=== PATIENT | female | born 1960 | race Caucasian/White ===

== ENCOUNTER 2016-04-16 09:35 | Inpatient (IN) | payer OTHER ==
[~2016-04-16] VITALS: Ht 167.6 cm; Wt 92.8 kg
[2016-04-16] VITALS (33 sets, daily range): BP systolic 103–162; BP diastolic 49–84; PULSE 63–96; RESP 10–26; Ht 167.6 cm; Wt 92.8 kg
[2016-04-16] MEDS: BUPIVACAINE 0.5% (SDV) 30 ML, morphine SULFATE (PF) 8 MG, EPINEPHrine 0.3 MG, KETOROLAC... IRR SCH ×14 (06:30→15:23)
[~2016-04-16 09:35] MED LIST: CEFAZOLIN 2 GM/50 ML (PMX) 50 ML IVPB ONE; DEXAMETHASONE 1 MG TAB PO ONE; GABAPENTIN 300 MG CAP PO ONE; SOD CHLORIDE 0.9% 100 ML, TRANEXAMIC ACID 3,000 MG IRR ONE; SUCCINYLCHOLINE CHLORIDE 100 MG/5 ML SYG IV ONE; TRANEXAMIC ACID 1,000 MG in SOD CHLORIDE 0.9% 100 ML IVPB ONE; oxyCODONE (CR) 10 MG TAB [oxyCONTIN] PO ONE; traMADol 50 MG TAB PO ONE
[2016-04-16] MEDS ORDERED: OMEP20CA16 PO (11:02)
--- NOTE | 2016-04-16 11:15 | HPN ---
Date/Time of Note Date/Time of Note DATE: 04/16/16 TIME: 11:15 Interval H&P Admission Note Pt. seen H&P reviewed: No system changes CHIP MAGDALENO MD Apr 16, 2016 11:15
[2016-04-16] MEDS ORDERED: CEFAZOLIN 1 GM INJ ONE (12:53)
[2016-04-16] MEDS ORDERED: ETOMIDATE 20 MG INJ ONE (12:53)
[2016-04-16] MEDS ORDERED: ONDANSETRON 4 MG INJ ONE (12:53)
[2016-04-16] MEDS ORDERED: PROPOFOL 100 ML ONE (12:53)
[2016-04-16] MEDS ORDERED: LIDOCAINE 100 MG SYRINGE ONE (12:53)
[2016-04-16] MEDS ORDERED: NEOSTIGMINE 3 MG/3 ML SYRINGE ONE (12:53)
[2016-04-16] MEDS ORDERED: GLYCOPYRROLATE 0.4 MG INJ ONE (12:53)
[2016-04-16] MEDS ORDERED: MIDAZOLAM 1 MG/ML 2 ML INJ ONE (12:53)
[2016-04-16] MEDS ORDERED: ROCURONIUM 50 MG INJ ONE (12:53)
[2016-04-16] MEDS ORDERED: morphine SULFATE/PF (10 MG/10 ML) INJ ONE (12:53)
[2016-04-16] MEDS ORDERED: FENTAnyl 50 MCG/ML VIAL ONE (12:53)
[2016-04-16] MEDS ORDERED: DEXAMETHASONE 4 MG/ML 1 ML INJ ONE (12:54)
[2016-04-16] MEDS ORDERED: THROMBIN 5000 UNIT VIAL ONE (14:21)
[2016-04-16] MEDS ORDERED: POLYMYXIN/BACITRACIN 1L IRRIG ONE (14:21)
[2016-04-16] MEDS ORDERED: CA CHLORIDE 10% 10 ML SYRINGE ONE (14:48)
[2016-04-16] MEDS ORDERED: DIPHENHYDRAMINE 50 MG INJ IV PRN ×3 (16:00→21:00)
[2016-04-16] MEDS ORDERED: EPHEDrine SULFATE 50 MG/5 ML SYG IV PRN (16:00)
[2016-04-16] MEDS ORDERED: HYDROmorphONE (0.2 MG/ML) 10ML SYG IV PRN ×3 (16:00)
[2016-04-16] MEDS ORDERED: KETOROLAC 30 MG INJ IV PRN (16:00)
[2016-04-16] MEDS ORDERED: LABETALOL HCL 20MG INJ IV PRN (16:00)
[2016-04-16] MEDS ORDERED: ONDANSETRON 4 MG INJ IV PRN ×3 (16:00→21:00)
[2016-04-16] MEDS ORDERED: ZOLPIDEM 5 MG TAB PO PRN ×2 (16:00→17:00)
[2016-04-16] MEDS ORDERED: TRIMETHOBENZAMIDE 100 MG/ML VIAL IM PRN (16:00)
[2016-04-16] MEDS ORDERED: hydrALAzine 20 MG INJ IV PRN (16:00)
[2016-04-16] MEDS ORDERED: NALOXONE (0.4 MG/ML) INJ IV PRN (16:00)
[2016-04-16] MEDS ORDERED: FENTAnyl 50 MCG/ML VIAL IV PRN ×3 (16:00)
[2016-04-16] MEDS ORDERED: MIDAZOLAM 1 MG/ML 2 ML INJ IV PRN (16:00)
[2016-04-16] MEDS ORDERED: MEPERIDINE 25 MG INJ IV PRN (16:00)
--- NOTE | 2016-04-16 16:54 | OPR ---
DATE OF OPERATION: 04/16/2016 SURGEON: Chip Shah MD WOODEN FRAME BUILDER: Billy Dunn MD PREOPERATIVE DIAGNOSES: 1. Left hip osteoarthritis, postop. 2. Status post left hip arthroscopic surgery, now with secondary osteoarthritis. OPERATION PERFORMED: Revision of prior left hip arthroscopic surgery to total hip replacement. Headlight Assembler surgeon Billy Dunn MD, was asked to be present at my request as a result of the significan t surgical complexity associated with this procedure, including positioning of the extremity, manipu lation and protection of the neurovascular structures. In my opinion, the assistance offered by a [facility] music sound light technician is insufficient and Dr. Dunn should be compensated for his time. PROCEDURE IN DETAIL: Following administration of general endotracheal anesthesia, the patient was p laced in the supine position, left lower extremity was prepped and draped in the usual sterile fashi on. A lateral incision was then made over the tensor. The tensor was retracted laterally. The ant erior capsule was then entered after significant scar tissue was resected from the prior arthroscopi c procedure. A capsulotomy was then performed and the subsequent capsulectomy to expose the joints. A femoral neck cut was then made in the appropriate degree of version and inclination followed by dislocation of the head. Examination of the acetabulum revealed severe arthritic changes as did the femoral head. The peripheral osteophytes and capsulectomy were then completed. The acetabulum was reamed up to the 50 mm size. A 50 mm [place] and cup was then inserted with a 30 mm fixation scre w. Solid fixation was obtained. A standard liner was then applied. The femur was then exposed and reamed up to the 10 mm size. Subsequent radiographic and computer CT -guided imagery revealed essentially normal and collinear alignment of the extremities with antevers ion and abduction of the cup to be within the normal parameters. The actual [place] stem was then in serted with a standard +5 head which was a ceramic head. The joint was taken through a full range o f motion, very stable components, no instability. Thorough irrigation was then completed. The join t was subsequently taken through a full range of motion again with no evident instability and closed in layers with a Prineo dressing as the final dressing. The patient was then awakened, transported to recovery in stable condition, having tolerated the procedure well. Estimated blood loss for thi s procedure was 250 mL. Postoperative x-rays will be obtained in the recovery room as well as a CBC . Dictated By: CHIP MENDOZA/NOAH Conf#: [id number] DID#: [id number]
[2016-04-16] MEDS ORDERED: OXYCODONE/ACETAMINOPHEN (5/325) TAB PO PRN ×2 (17:00)
[2016-04-16] MEDS ORDERED: MAGNESIUM HYDROXIDE 30ML CUP PO PRN (17:00)
[2016-04-16] MEDS ORDERED: BETHANECHOL 25 MG TAB PO PRN (17:00)
[2016-04-16] MEDS ORDERED: ACETAMINOPHEN 500 MG TAB PO PRN (17:00)
[2016-04-16] MEDS ORDERED: KETOROLAC 15 MG INJ IV PRN (17:00)
[2016-04-16] MEDS ORDERED: TRANEXAMIC ACID 1,000 MG in SOD CHLORIDE 0.9% 100 ML IV ONE (17:00)
[2016-04-16] MEDS ORDERED: morphine 2 MG INJ IV PRN (17:00)
--- NOTE | 2016-04-16 17:32 | RADRPT ---
PROCEDURE: XR Pelvis. CLINICAL INDICATION: Left hip pain with history of hip replacement. Postoperative evaluation. TECHNIQUE: Single AP view of the pelvis was obtained. COMPARISON: None FINDINGS: A left hip arthroplasty is seen and is without evidence of hardware loosening of lucency. No acute fracture or dislocation is seen. Degenerative changes of the right hip are seen. A Peters catheter is identified. The soft tissue structures are intact. IMPRESSION: Radiographically intact left hip arthoplasty. RPTAT: HPNM Physician Hetal Date Time Electronically viewed and signed by Physician Hetal on 04/16/2016 17:31 /
[2016-04-16 17:42] LABS: ADD SCAN DIFF NO
[2016-04-16] MEDS: LACTATED RINGER'S 1,000 ML IV SCH (17:44)
[2016-04-16] MEDS: DEXAMETHASONE 2 MG TAB PO SCH (17:44)
[2016-04-16 17:53] LABS: BASOPHIL # 0.1 10^3/ul (0.0-0.1); BASOPHILS % 0.4 % (0.0-2.0); EOSINOPHILS % 0.1 % (0.0-7.0); HEMATOCRIT 39.7 % (37.0-47.0); HEMOGLOBIN 12.6 g/dl (12.0-16.0); LYMPHOCYTES # 1.4 10^3/ul (0.8-2.9); LYMPHOCYTES % 9.9 % (15.0-51.0); MEAN CORPUSCULAR HEMOGLOBIN 28.8 pg (29.0-33.0); MEAN CORPUSCULAR HGB CONC 31.7 g/dl (32.0-37.0); MEAN CORPUSCULAR VOLUME 90.8 fl (82.0-101.0); MEAN PLATELET VOLUME 10.5 fl (7.4-10.4); MONOCYTE # 0.1 10^3/ul (0.3-0.9); MONOCYTES % 0.7 % (0.0-11.0); NEUTROPHIL # 12.1 10^3/ul (1.6-7.5); PLATELET COUNT 221 10^3/UL (140-415); RED BLOOD COUNT 4.37 10^6/ul (4.20-5.40); RED CELL DISTRIBUTION WIDTH 13.1 % (11.5-14.5); WHITE BLOOD COUNT 13.8 10^3/ul (4.8-10.8)
--- NOTE | 2016-04-16 19:27 | CONS ---
Date/Time of Note Date/Time of Note DATE: 04/16/16 TIME: 19:18 Assessment/Plan Assessment/Plan Problems: (1) Gastro-esophageal reflux disease without esophagitis Status: Chronic Comment: Cont. PPI bid (2) Obstructive sleep apnea Status: Chronic Comment: CPAP while sleeping at night (3) Aftercare following left hip joint replacement surgery Status: Acute Comment: Doing well POD#0. Will defer to primary team for pain control and PT orders. Will monitor for any medical issues should they arise. Consultation Date/Type/Reason Admit Date/Time Apr 16, 2016 at 09:56 Date of Consultation: Apr 16, 2016 Type of Consultation: Medicine Reason for Consultation Medical Management Referring Provider: CHIP MAGDALENO MD Hx of Present Illness 56 y/o H F w/ h/o GERD and L hip problems who had labrum repaired 2 years ago. Subsequently failed to regain normal function or pain-free state. Went back to work doing light duty but with light duty pain actually increasing. Saw ortho again who felt she needed a hip replacement. Now today s/p L ANA, POD#0. Constitutional: improved, no complaints Eyes: no complaints ENT: no complaints Respiratory: no complaints Cardiovascular: no complaints Gastrointestinal: no complaints Genitourinary: no complaints Musculoskeletal: no complaints Skin: no complaints Neurologic: no complaints Psychological: nl mood/affect, no complaints Past Medical History Medical History: GERD, other (kidney stone, ALEJANDRO) Past Surgical History Past Surgical Hx: cholecystectomy, other (ROBERT-BSO, L hip labrum repair) Family History Significant Family History: diabetes, hypertension, other (liver disease, OA) Social History b. 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0 04/16/16 10:54 98.1 87 16 162/84 99 Vital Signs Date Time Temp Pulse Resp B/P Pulse Ox O2 Delivery O2 Flow Rate FiO2 04/16/16 17:32 66 26 127/64 100 Nasal Cannula 2.0 04/16/16 16:55 98.2 Exam Constitutional: alert, obese, oriented Psych: nl mood/affect, no complaints Eyes: EOMI, PERRL, nl conjunctiva, nl lids, nl sclera ENMT: mucosa pink and moist, nl external ears & nose Neck: non-tender, supple, No bruits, No masses, No thyromegaly Respiratory: clear to auscultation, normal air movement Cardiovascular: nl pulses, regular rate and rhythm, No edema, No murmurs/extra sounds, No rub Gastrointestinal: bowel sounds, nl liver, spleen, non-tender, soft, No mass, No rebound or guarding Musculoskeletal: nl extremities to inspection Extremities: normal pulses, No clubbing, No cyanosis, No edema Neurological: VENDING SERVICE TECHNICIAN II-XII intact, nl mental status, nl speech, nl strength Results Result Diagram: 04/16/16 1724 Results 24 hrs Laboratory Tests Test 04/16/16 17:24 Basophils # 0.1 Basophils % 0.4 Eosinophils # 0.0 Eosinophils % 0.1 Hematocrit 39.7 Hemoglobin 12.6 Lymphocytes # 1.4 Lymphocytes % 9.9 L Mean Corpuscular Hemoglobin 28.8 L Mean Corpuscular Hemoglobin Concent 31.7 L Mean Corpuscular Volume 90.8 Mean Platelet Volume 10.5 H Monocytes # 0.1 L Monocytes % 0.7 Neutrophils # 12.1 H Neutrophils % 88.0 H Nucleated Red Blood Cells # 0.0 Nucleated Red Blood Cells % 0.0 Platelet Count 221 Red Blood Count 4.37 Red Cell Distribution Width 13.1 White Blood Count 13.8 H Medications Medications Current Medications Cefazolin Sodium (Ancef 1 Gm/50 ml (Pmx)) 50 ml @ 100 mls/hr Q8H IVPB ; Start 04/16/16 at 21:00; Stop 04/17/16 at 13:29 Senna/Docusate Sodium (Senokot-S) 1 tab BID PO ; Start 04/16/16 at 21:00 Simethicone (Mylicon) 80 mg TID PRN PO DISTENSION/GAS/BLOATING; Start 04/16/16 at 17:00 Magnesium Hydroxide (Milk Of Mag) 30 ml BID PRN PO CONSTIPATION; Start 04/16/16 at 17:00 Acetaminophen (Tylenol Tab) 1,000 mg Q4H PRN PO TEMP GREATER THAN 100.4F; Start 04/16/16 at 17:00 Dexamethasone (Decadron) 2 mg Q6 PO Last administered on 04/16/16t 17:44; Admin Dose 2 MG; Start 04/16/16 at 18:00; Stop 04/17/16 at 12:01 Gabapentin (Neurontin) 300 mg HS PO ; Start 04/16/16 at 21:00 Oxycodone/ Acetaminophen (Percocet (5/ 325)) 1 tab Q4H PRN PO PAIN LEVEL 1-5; Start 04/16/16 at 17:00 Oxycodone/ Acetaminophen (Percocet (5/ 325)) 2 tab Q4H PRN PO PAIN LEVEL 6-10; Start 04/16/16 at 17:00 Morphine Sulfate (morphine) 2 mg Q2H PRN IV PAIN LEVEL 1-5; Start 04/16/16 at 17 :00 Morphine Sulfate (morphine) 4 mg Q4H PRN IV PAIN LEVEL 6-10; Start 04/16/16 at 17:00 Ketorolac Tromethamine (Toradol) 15 mg Q6H PRN IV PAIN; Start 04/16/16 at 17:00 ; Stop 04/19/16 at 16:59 Ondansetron HCl (Zofran Inj) 4 mg Q6H PRN IV NAUSEA AND/OR VOMITING; Start 04/16 at 17:00 Diphenhydramine HCl (Benadryl) 25 mg Q6H PRN IV PRURITUS; Start 04/16/16 at 17: 00 Aspirin 81 mg 81 mg DAILY PO ; Start 04/17/16 at 09:00 Lactated Ringer's (Lr) 1,000 ml @ 100 mls/hr Q10H IV Last administered on t 17:44; Admin Dose 100 MLS/HR; Start 04/16/16 at 16:37 SANFORD MORENO MD Apr 16, 2016 19:27
[2016-04-16] MEDS ORDERED: HYDROmorphONE 1 MG/ML SYG IV PRN ×2 (21:00)
[2016-04-16] MEDS ORDERED: NALBUPHINE HCL (10 MG/1 ML) INJ IV PRN (21:00)
[2016-04-16] MEDS ORDERED: GABAPENTIN 300 MG CAP PO SCH (21:00)
[2016-04-16] MEDS: SENNA/DOCUSATE NA (8.6MG/50MG) TAB PO SCH (22:05)
[2016-04-16] MEDS: CEFAZOLIN 1 GM/50 ML (PMX) 50 ML IVPB SCH (22:05)
[2016-04-17] VITALS: BP 107/57; RESP 20
[2016-04-17] MEDS: DEXAMETHASONE 2 MG TAB PO SCH ×3 (00:32→14:14)
[2016-04-17 01:00] VITALS: BP 105/57; PULSE 64; RESP 16
[2016-04-17] MEDS: LACTATED RINGER'S 1,000 ML IV SCH (02:30)
[2016-04-17 04:00] VITALS: BP 106/54; PULSE 64; RESP 16
[2016-04-17 05:01] LABS: ADD SCAN DIFF NO
[2016-04-17] MEDS: CEFAZOLIN 1 GM/50 ML (PMX) 50 ML IVPB SCH ×2 (05:16→14:12)
[2016-04-17 05:29] LABS: BASOPHILS % 0.1 % (0.0-2.0); HEMATOCRIT 36.4 % (37.0-47.0); HEMOGLOBIN 11.7 g/dl (12.0-16.0); LYMPHOCYTES # 1.3 10^3/ul (0.8-2.9); LYMPHOCYTES % 7.8 % (15.0-51.0); MEAN CORPUSCULAR HGB CONC 32.1 g/dl (32.0-37.0); MEAN CORPUSCULAR VOLUME 90.3 fl (82.0-101.0); MEAN PLATELET VOLUME 10.8 fl (7.4-10.4); MONOCYTE # 0.5 10^3/ul (0.3-0.9); MONOCYTES % 2.8 % (0.0-11.0); NEUTROPHIL # 14.4 10^3/ul (1.6-7.5); NEUTROPHILS % 88.7 % (39.0-77.0); PLATELET COUNT 237 10^3/UL (140-415); RED BLOOD COUNT 4.03 10^6/ul (4.20-5.40); RED CELL DISTRIBUTION WIDTH 12.9 % (11.5-14.5); WHITE BLOOD COUNT 16.2 10^3/ul (4.8-10.8)
[2016-04-17] MEDS ORDERED: PANTOPRAZOLE (EC) 40 MG TAB PO SCH (06:00)
--- NOTE | 2016-04-17 06:38 | PDOCDIS ---
Discharge Instructions DIAGNOSIS Discharge Diagnosis: hip arthritis CONDITION Patient Condition: Good HOME CARE INSTRUCTIONS: Diet Instructions: Regular ACTIVITY: Activity Restrictions: Slowly Increase Activity Keep Limb Elevated Bathing Restrictions: Shower FOLLOW UP/APPOINTMENTS Appointments two weeks SCHOOL/WORK RELEASE May return to School/Work with: With Restrictions School/Work Release Comment: No hip extension for six weeks CHIP MAGDALENO MD Apr 17, 2016 06:38
--- NOTE | 2016-04-17 07:11 | PN ---
Date/Time of Note Date/Time of Note DATE: 04/17/16 TIME: 07:10 24 hour Interval Summary Rosa is doing well She has minimal to no pain. Physical examination reveals that her wound is clean and dry. She is neurologically intact. There are no signs of DVT. Assessment: Status post total hip Plan: She will begin physical therapy this morning discharged later this afternoon if she is independently ambulatory. Physical Exam Vital Signs Date Time Temp Pulse Resp B/P Pulse Ox O2 Delivery O2 Flow Rate FiO2 04/17/16 04:00 64 16 106/54 99 Nasal Cannula 04/17/16 00:00 97.7 04/16/16 22:00 2.0 Intake and Output 04/16/16 04/16/16 04/17/16 15:00 23:00 07:00 Intake Total 2250 ml 1370 ml Output Total 650 ml 300 ml Balance 1600 ml 1070 ml VTE Prophylaxis VTE Prophylaxis Intervention: anti-embolic stocking Lines/Catheters IV Catheter Type: Saline Lock Central line still needed: No Peters in Place: No Results Result Diagram: 04/17/16 0415 Results 24hrs Laboratory Tests Test 04/16/16 17:24 04/17/16 04:15 Basophils # 0.1 0.0 Basophils % 0.4 0.1 Eosinophils # 0.0 0.0 Eosinophils % 0.1 0.0 Hematocrit 39.7 36.4 L Hemoglobin 12.6 11.7 L Lymphocytes # 1.4 1.3 Lymphocytes % 9.9 L 7.8 L Mean Corpuscular Hemoglobin 28.8 L 29.0 Mean Corpuscular Hemoglobin Concent 31.7 L 32.1 Mean Corpuscular Volume 90.8 90.3 Mean Platelet Volume 10.5 H 10.8 H Monocytes # 0.1 L 0.5 Monocytes % 0.7 2.8 Neutrophils # 12.1 H 14.4 H Neutrophils % 88.0 H 88.7 H Nucleated Red Blood Cells # 0.0 0.0 Nucleated Red Blood Cells % 0.0 0.0 Platelet Count 221 237 Red Blood Count 4.37 4.03 L Red Cell Distribution Width 13.1 12.9 White Blood Count 13.8 H 16.2 H Assessment/Plan Chief Complaint/Hosp Course 56 y/o H F w/ h/o GERD and L hip problems who had labrum repaired 2 years ago. Subsequently failed to regain normal function or pain-free state. Went back to work doing light duty but with light duty pain actually increasing. Saw ortho again who felt she needed a hip replacement. Now today s/p L ANA, POD#0. Problems: Medications Medications Home Meds Reported Medications Omeprazole* (Omeprazole*) 20 Mg Capsule., 20 MG PO BID, #60 CAP 04/16/16 CHIP MAGDALENO MD Apr 17, 2016 07:11
--- NOTE | 2016-04-17 07:12 | DS ---
Date/Time of Note Date/Time of Note DATE: 04/17/16 TIME: 07:11 Discharge Summary Admission/Discharge Info Admit Date/Time Apr 16, 2016 at 09:56 Discharge Date/Time April 17, 2016 following clearance by physical therapy. Final Diagnosis Left hip osteoarthritis Procedures Left total hip replacement Hx of Present Illness Continued pain after hip arthroscopy with severe arthritis. Hospital Course 56 y/o H F w/ h/o GERD and L hip problems who had labrum repaired 2 years ago. Subsequently failed to regain normal function or pain-free state. Went back to work doing light duty but with light duty pain actually increasing. Saw ortho again who felt she needed a hip replacement. Now today s/p L ANA, POD#0. Home Meds Reported Medications Omeprazole* (Omeprazole*) 20 Mg Capsule., 20 MG PO BID, #60 CAP 04/16/16 Pending Labs Laboratory Tests Test 04/16/16 17:24 04/17/16 04:15 Basophils # 0.110^3/ul (0.0-0.1) 0.010^3/ul (0.0-0.1) Basophils % 0.4% (0.0-2.0) 0.1% (0.0-2.0) Eosinophils # 0.010^3/ul (0.0-0.5) 0.010^3/ul (0.0-0.5) Eosinophils % 0.1% (0.0-7.0) 0.0% (0.0-7.0) Hematocrit 39.7% (37.0-47.0) 36.4% (37.0-47.0) Hemoglobin 12.6g/dl (12.0-16.0) 11.7g/dl (12.0-16.0) Lymphocytes # 1.410^3/ul (0.8-2.9) 1.310^3/ul (0.8-2.9) Lymphocytes % 9.9% (15.0-51.0) 7.8% (15.0-51.0) Mean Corpuscular Hemoglobin 28.8pg (29.0-33.0) 29.0pg (29.0-33.0) Mean Corpuscular Hemoglobin Concent 31.7g/dl (32.0-37.0) 32.1g/dl (32.0-37.0) Mean Corpuscular Volume 90.8fl (82.0-101.0) 90.3fl (82.0-101.0) Mean Platelet Volume 10.5fl (7.4-10.4) 10.8fl (7.4-10.4) Monocytes # 0.110^3/ul (0.3-0.9) 0.510^3/ul (0.3-0.9) Monocytes % 0.7% (0.0-11.0) 2.8% (0.0-11.0) Neutrophils # 12.110^3/ul (1.6-7.5) 14.410^3/ul (1.6-7.5) Neutrophils % 88.0% (39.0-77.0) 88.7% (39.0-77.0) Nucleated Red Blood Cells # 0.010^3/ul (0.0-0.0) 0.010^3/ul (0.0-0.0) Nucleated Red Blood Cells % 0.0/100WBC (0.0-0.0) 0.0/100WBC (0.0-0.0) Platelet Count 85297^3/UL (140-415) 88546^3/UL (140-415) Red Blood Count 4.3710^6/ul (4.20-5.40) 4.0310^6/ul (4.20-5.40) Red Cell Distribution Width 13.1% (11.5-14.5) 12.9% (11.5-14.5) White Blood Count 13.810^3/ul (4.8-10.8) 16.210^3/ul (4.8-10.8) CHIP MAGDALENO MD Apr 17, 2016 07:12
[2016-04-17] MEDS: morphine 4 MG/ML VIAL IV PRN ×2 (08:20→14:12)
[2016-04-17 08:29] VITALS: BP_SYST 101; BP_SYST 99; BP_DIAS 57; BP_DIAS 62; RESP 14; RESP 16
[2016-04-17] MEDS ORDERED: ASPIRIN 81 MG TAB PO SCH (09:00)
--- NOTE | 2016-04-17 10:11 | RADRPT ---
PROCEDURE: X-ray fluoroscopy guidance CLINICAL INDICATION: Pain TECHNIQUE: Fluoroscopic guidance was utilized for left hip replacement. COMPARISON: None available FINDINGS: Left hip arthroplasty is identified in anatomic position. No acute fracture or dislocation is seen. 0.2 minutes of fluoroscopy time was utilized for the procedure. 23 images were obtained during the procedure in progress. Cumulative dose is 3.22 mGy and 0.0956 mGym2. IMPRESSION: 1. X-ray fluoroscopic guidance, as above. RPTAT: PP .Herb Vines MD, Date Time Electronically viewed and signed by .Herb Vines MD, on 04/17/2016 10:11 .R/
[2016-04-17] MEDS: SENNA/DOCUSATE NA (8.6MG/50MG) TAB PO SCH (14:12)
== END 2016-04-17 17:00 | disposition home or self-care (01) | DRG 470 ==
LOC: EDSEX 09:56 → REC 09:56 → MS1 21:33
PROVIDERS: ADMIT Orthopaedic Surgery; ATTEND Orthopaedic Surgery
PROC: 0SRB04A Replacement of Left Hip Joint with Ceramic on Polyethylene Synthetic Substitute, Uncemented, Open Approach (ICD-10-PCS; principal; 2016-04-16 14:00)
DX: M16.12 Unilateral primary osteoarthritis, left hip (principal); G47.33 Obstructive sleep apnea (adult) (pediatric); K21.9 Gastro-esophageal reflux disease without esophagitis; Z98.890 Other specified postprocedural states
CPT/HCPCS: 72170; 73530; 85025; 97163; Z7610; C1713; C1776; J0171; J0330; J0690; J0735; J1100; J1885; J2001; J2250; J2270; J2274; J2405; J2710; J3010; J3370; J7120

== ENCOUNTER 2017-01-14 11:36 | Day surgery (SDC) | payer OTHER ==
[2017-01-13 15:28] VITALS: BMI 29.5
[2017-01-14] VITALS (8 sets, daily range): BP systolic 108–149; BP diastolic 60–82; PULSE 72–86; RESP 12–20; Ht 165.1 cm; Wt 86.6 kg
[~2017-01-14] VITALS: Ht 165.1 cm; Wt 86.6 kg
--- NOTE | 2017-01-14 05:35 | HPN ---
Date/Time of Note Date/Time of Note DATE: 01/14/17 TIME: 05:34 Interval H&P Admission Note Pt. seen H&P reviewed: No system changes CHIP MAGDALENO MD Jan 14, 2017 05:35
[~2017-01-14 11:36] MED LIST changes: -CEFAZOLIN 2 GM/50 ML (PMX) 50 ML IVPB ONE; +OMEP20CA16 PO; -SOD CHLORIDE 0.9% 100 ML, TRANEXAMIC ACID 3,000 MG IRR ONE; -SUCCINYLCHOLINE CHLORIDE 100 MG/5 ML SYG IV ONE; -TRANEXAMIC ACID 1,000 MG in SOD CHLORIDE 0.9% 100 ML IVPB ONE; -oxyCODONE (CR) 10 MG TAB [oxyCONTIN] PO ONE
[2017-01-14] MEDS ORDERED: traMADol 50 MG TAB PO ONE (13:00)
[2017-01-14] MEDS ORDERED: GABAPENTIN 300 MG CAP PO ONE (13:00)
[2017-01-14] MEDS ORDERED: DEXAMETHASONE 1 MG TAB PO ONE (13:00)
[2017-01-14] MEDS ORDERED: PROPOFOL 20 ML ONE (14:26)
[2017-01-14] MEDS ORDERED: LIDOCAINE 2% (SDV) 5 ML INJ ONE (14:26)
[2017-01-14] MEDS ORDERED: MIDAZOLAM 1 MG/ML 2 ML INJ ONE (14:26)
[2017-01-14] MEDS ORDERED: FENTAnyl 50 MCG/ML VIAL ONE (14:26)
[2017-01-14] MEDS ORDERED: CEFAZOLIN 1 GM INJ ONE (14:36)
[2017-01-14] MEDS ORDERED: DEXAMETHASONE 4 MG/ML 1 ML INJ ONE (14:38)
[2017-01-14] MEDS ORDERED: ONDANSETRON 4 MG INJ ONE (14:38)
[2017-01-14] MEDS ORDERED: FAMOTIDINE 20 MG INJ ONE (14:38)
[2017-01-14] MEDS ORDERED: BUPIVACAINE 0.5% (SDV) 30 ML, morphine SULFATE (PF) 8 MG, EPINEPHrine 0.3 MG, KETOROLAC... IRR SCH ×7 (15:00)
--- NOTE | 2017-01-14 15:32 | PDOCDIS ---
Discharge Instructions DIAGNOSIS Discharge Diagnosis Psoas tendinitis, left hip CONDITION Patient Condition: Good HOME CARE INSTRUCTIONS: Diet Instructions: Regular ACTIVITY: Activity Restrictions: Slowly Increase Activity Bathing Restrictions: Shower FOLLOW UP/APPOINTMENTS Follow-up Plan 2 weeks SCHOOL/WORK RELEASE May return to School/Work with: With Restrictions School/Work Release Comment: Crutches as necessary for the next 2 weeks CHIP MAGDALENO MD Jan 14, 2017 15:32
--- NOTE | 2017-01-14 15:35 | RADRPT ---
PROCEDURE: Intraoperative imaging of the left hip with fluoroscopy. CLINICAL INDICATION: Left hip pain. Intraoperative. TECHNIQUE: A single lateral image of the left hip was obtained in the operating room with an image intensifier. No radiologist was in attendance. 28 seconds of fluoroscopy time was used. COMPARISON: No prior study is available for comparison. FINDINGS: The image demonstrates a left hip total arthroplasty. Surgical instruments are noted overlying the u pper left femur. IMPRESSION: 1. Satisfactory intraoperative imaging of the left hip. RPTAT: QQ .Esvin Talbot MD, Date Time Electronically viewed and signed by .Esvin Talbot MD, on 01/14/2017 15:35 .R/
--- NOTE | 2017-01-14 15:36 | OPR ---
Date/Time of Note Date/Time of Note DATE: 01/14/17 TIME: 15:33 Operative Report Procedure Date: Jan 14, 2017 Preoperative Diagnosis Left hip psoas tendinitis Postoperative Diagnosis Left hip psoas tendinitis Operation/Procedure Performed Left hip endoscopic psoas tendon release Surgeon see signature line Drug And Alcohol Counsellor Edgar Mcmahan MD Anesthesia Type: general Estimated Blood Loss: minimal Transfusion none Specimen None Grafts/Implants none Complications none Pt Condition Post Procedure: stable Disposition: PACU Procedure Description INDICATIONS FOR PROCEDURE AND SUMMARY: This patient had a repeat replacement operation of her left hip several months ago. She has had continued pain with hip flexion. A injection in the office revealed that the psoas tendon sheath injection provided very significant relief for a period of 2 weeks. At this point, she has recurrent pain is taken to surgery for psoas tendon release. CEMENT MIXER SURGEON: Edgar Mcmahan MD was asked to be present at my request as a result of the significant surgical complexity associated with this procedure. Specifically, the arthroscopic resection of the femoral neck requires expert assistance with respect to the positioning of the arthroscope, which is a 70- degree arthroscope, while the surgeon exchanges instruments to perform the resection and labral repair. In my opinion, the assistance offered by a surgical attendant is not sufficient as a result of their lack of training with these instruments. Dr. Mcmahan should therefore be compensated for their time. PROCEDURE: Following the administration of general anesthesia supplemented with local anesthetic, the patient was placed in the supine position on the Ramsey and Nephew hip traction device. All prominences were properly padded, including the perineum and the ipsilateral arm. Examination of the [] hip revealed a range of motion of [] of internal rotation with 90 of flexion. The left hip was prepped and draped in the usual sterile fashion. The leg was then placed in traction. Under fluoroscopic guidance, 2 anterior portals were developed over the anterior aspect of the femur exposing the area of the lesser trochanter. This was performed using direct fluoroscopic and visualization. Using direct visualization, the psoas tendon was then identified and released off the lesser trochanter. Moderate synovitis was noted in the tendon sheath. The leg was then taken through full motion to assure that the psoas had been completely released. The arthroscopic equipment was then removed, followed by thorough irrigation . The wounds were closed using #4-0 Monocryl sutures, followed by a sterile dressing. The patient was then extubated and transported to the recovery room in stable condition, having tolerated the procedure well. CHIP MAGDALENO MD Jan 14, 2017 15:36
[2017-01-14] MEDS ORDERED: PROCHLORPERAZINE 10 MG INJ IV PRN (16:00)
[2017-01-14] MEDS ORDERED: OXYCODONE/ACETAMINOPHEN (5/325) TAB PO PRN (16:00)
[2017-01-14] MEDS ORDERED: DIPHENHYDRAMINE 50 MG INJ IV PRN (16:00)
[2017-01-14] MEDS ORDERED: FENTAnyl 50 MCG/ML VIAL IV PRN (16:00)
[2017-01-14] MEDS ORDERED: ONDANSETRON 4 MG INJ IV PRN (16:00)
[2017-01-14] MEDS: HYDROmorphONE (0.2 MG/ML) 10ML SYG IV PRN ×2 (16:10→16:25)
== END 2017-01-14 18:08 | disposition home or self-care (01) ==
LOC: SDS 11:36
PROVIDERS: ATTEND Orthopaedic Surgery
DX: M76.12 Psoas tendinitis, left hip (principal); K21.9 Gastro-esophageal reflux disease without esophagitis; E66.9 Obesity, unspecified; Z68.31 Body mass index [BMI] 31.0-31.9, adult; G47.30 Sleep apnea, unspecified
CPT/HCPCS: 29999; 73530; J0690; J1170; J2250; J3010; J1100; J2405